=== PATIENT | female | born 1960 | race Hispanic/Latino ===

== ENCOUNTER 2018-06-21 20:34 | Emergency (ER) | payer OTHER ==
[~2018-06-21] VITALS: Ht 162.6 cm; Wt 73.5 kg
[~2018-06-21 20:34] MED LIST: IBUPROFEN 800 MG PO; Z IRON PO; Z.0.ALAGESIC CAPSU1 PO; Z.0.FOLIC ACID1 MG PO; Z.0.MELOXICAM7.5 MG PO; Z.0.PREMARIN1.25 MG PO
[2018-06-21] MEDS ORDERED: KETOROLAC TROMETHAMINE 30 MG/ML VIAL IV STA (20:58)
[2018-06-21] MEDS ORDERED: ORPHENADRINE CITRATE 30 MG/ML VIAL IM ONE (21:00)
[2018-06-21 21:34] LABS: BASOPHILS % 0.2 % (0.0-1.0); EOSINOPHILS % 0.2 % (0.0-6.0); HEMATOCRIT 41.8 % (34.2-44.1); HEMOGLOBIN 13.8 g/dL (12.0-16.0); LYMPHOCYTES # (AUTO) 1.3 (1.0-3.2); LYMPHOCYTES % 24.8 % (18.0-39.1); MEAN CORPUSCULAR HEMOGLOBIN 29.1 pg (28-32); MEAN CORPUSCULAR VOLUME 88.2 fL (81-99); MONOCYTES # (AUTO) 0.4 (0.2-0.8); MONOCYTES % 7.9 % (4.4-11.3); NEUTROPHILS # (AUTO) 3.5 (2.1-6.9); NEUTROPHILS % 66.5 % (38.7-80.0); PLATELET COUNT 185 x10e3/uL (140-360); RED BLOOD COUNT 4.74 x10e6/uL (3.6-5.1); RED CELL DISTRIBUTION WIDTH 13.5 % (11.7-14.4)
[2018-06-21 21:58] LABS: ALANINE AMINOTRANSFERASE 55 IU/L (0-55); ALBUMIN/GLOBULIN RATIO 1.1 (0.8-2.0); ALKALINE PHOSPHATASE 108 IU/L (40-150); ANION GAP 13.7 mmol/L (8-16); BLOOD UREA NITROGEN 14 mg/dL (7-26); BUN/CREATININE RATIO 18 (6-25); CALCIUM 9.6 mg/dL (8.4-10.2); CARBON DIOXIDE 24 mmol/L (22-29); CHLORIDE 102 mmol/L (98-107); CREATINE KINASE 85 IU/L (29-168); CREATININE, SERUM 0.77 mg/dL (0.57-1.11); EST GLOMERULAR FILTRATION RATE > 60 ML/MIN (60-); GLUCOSE 107 mg/dL (74-118); POTASSIUM 4.7 mmol/L (3.5-5.1); SODIUM 135 mmol/L (136-145)
--- NOTE | 2018-06-21 22:36 | Diagnostic Imaging Report ---
CHEST SINGLE (NOT PORTABLE), 06/21/2018 8:57 PM Technique: CHEST SINGLE (NOT PORTABLE) Comparison: None available. Clinical history: Left arm pain Findings: Unremarkable appearance of the heart, mediastinum, lungs and pleural spaces. Remote right rib fractures. Impression: 1. Lines/Tubes: None 2. No acute abnormality. Signed by: Dr Bozena Judd MD on 06/21/2018 10:33 PM
[2018-06-21 23:11] VITALS: BP 109/66
== END 2018-06-21 23:16 | disposition home or self-care (01) ==
LOC: ER 20:34
DX: M79.622 Pain in left upper arm (principal); M25.512 Pain in left shoulder; S46.812A Strain of other muscles, fascia and tendons at shoulder and upper arm level, left arm, initial encounter
CPT/HCPCS: 36415; 71045; 80053; 82550; 82553; 84484; 85025; 93005; 99283; J1885; J2360

== ENCOUNTER 2019-04-12 20:48 | Emergency (ER) | payer OTHER ==
[~2019-04-12] VITALS: Ht 162.6 cm; Wt 77.1 kg
--- OUTSIDE RECORDS SUMMARY | 2019-04-12 20:53 | XMS REPORT ---
Author Author [facility] Address Unknown Phone Unavailable Care Team Providers Care Employment Instructional Associate Name Role Phone Yonatan MARR Unavailable Unavailable Problems This patient has no known problems. Allergies, Adverse Reactions, Alerts This patient has no known allergies or adverse reactions. Medications This patient has no known medications. Results Test Description Test Time Test Comments Text Results Atomic Results Result Comments CHEST SINGLE (NOT PORTABLE) 2018-06-21 22:31:00 [place] [address] Patient Name: BRAYDON ESPAÑA MR #: [id number] : 1960 Age/Sex: 58/F Req #: [id number] Adm Physician: Ordered by: ELISABETH MARR MD Report #: [id number] Location: ER Room/Bed: Procedure: [id number] DX/CHEST SINGLE (NOT PORTABLE) Exam Date: 06/21/18 Exam Time: 2124 REPORT STATUS: Signed CHEST SINGLE (NOT PORTABLE), 06/21/2018 8:57 PM Technique: CHEST SINGLE (NOT PORTABLE) Comparison: None available. Clinical history: Left arm pain Findings: Unremarkable appearance of the heart, mediastinum, lungs and pleural spaces. Remote right rib fractures. Impression: 1. Lines/Tubes: None 2. No acute abnormality. Signed by: Dr Marcel Judd MD on 06/21/2018 10:33 PM Dictated By: MARCEL JUDD MD 32 Transcribed By: DENICE on 06/21/182232 COPY TO: ELISABETH MARR MD
[2019-04-12] MEDS ORDERED: FAMOTIDINE 20 MG/2 ML VIAL IV STA (21:38)
[2019-04-12 21:42] LABS: BASOPHILS % 0.3 % (0.0-1.0); EOSINOPHILS # (AUTO) 0.1 (0.0-0.4); EOSINOPHILS % 1.7 % (0.0-6.0); HEMATOCRIT 38.8 % (34.2-44.1); HEMOGLOBIN 12.9 g/dL (12.0-16.0); LYMPHOCYTES # (AUTO) 2.7 (1.0-3.2); LYMPHOCYTES % 41.6 % (18.0-39.1); MEAN CORPUSCULAR HEMOGLOBIN 29.5 pg (28-32); MEAN CORPUSCULAR HGB CONC 33.2 g/dL (31-35); MEAN CORPUSCULAR VOLUME 88.8 fL (81-99); MONOCYTES # (AUTO) 0.5 (0.2-0.8); MONOCYTES % 7.2 % (4.4-11.3); NEUTROPHILS # (AUTO) 3.2 (2.1-6.9); NEUTROPHILS % 48.9 % (38.7-80.0); PLATELET COUNT 206 x10e3/uL (140-360); RED BLOOD COUNT 4.37 x10e6/uL (3.6-5.1); RED CELL DISTRIBUTION WIDTH 12.9 % (11.7-14.4)
[2019-04-12] MEDS ORDERED: DIPHENHYDRAMINE HCL INJ 50 MG/ML VIAL IV ONE (21:45)
[2019-04-12] MEDS ORDERED: METHYLPREDNISOLONE SOD SUCC 125 MG/2ML VIAL IV ONE (21:45)
[2019-04-12 22:03] LABS: ALANINE AMINOTRANSFERASE 33 IU/L (0-55); ALBUMIN/GLOBULIN RATIO 1.2 (0.8-2.0); ALKALINE PHOSPHATASE 99 IU/L (40-150); ANION GAP 13.9 mmol/L (8-16); BLOOD UREA NITROGEN 14 mg/dL (7-26); BUN/CREATININE RATIO 18 (6-25); CALCIUM 9.3 mg/dL (8.4-10.2); CARBON DIOXIDE 28 mmol/L (22-29); CHLORIDE 102 mmol/L (98-107); CREATINE KINASE 107 IU/L (29-168); CREATININE, SERUM 0.76 mg/dL (0.57-1.11); EST GLOMERULAR FILTRATION RATE > 60 ML/MIN (60-); GLUCOSE 103 mg/dL (74-118); POTASSIUM 3.9 mmol/L (3.5-5.1); SODIUM 140 mmol/L (136-145)
[2019-04-12 22:05] LABS: AMYLASE 81 U/L (25-125); LIPASE 53 U/L (8-78)
--- NOTE | 2019-04-12 22:42 | Diagnostic Imaging Report ---
A single frontal view of the chest. HISTORY: Heartburn COMPARISON: None available. DISCUSSION: Portable technique, limits sensitivity of the exam. Soft tissue attenuation partially limits sensitivity of the exam. Tubes/Lines: None Lungs and pleura: The lungs are well inflated. No evidence of a consolidative pneumonia or pulmonary alveolar edema. Stable 5 mm calcific density projecting at the right upper lung. No definite pleural effusion or pneumothorax is identified. Heart and mediastinum: The cardiomediastinal silhouette appear(s) unremarkable. Bones and soft tissues: Appear unremarkable, given this limited exam. IMPRESSION: 1. No acute radiographic abnormality. 2. Stable 5 mm density projecting at the right upper lung, likely a calcified granuloma, a small bone island within an overlying rib, or soft tissue calcification. If the patient has increased risk for lung cancer such as a significant smoking history or known malignancy, recommend a follow-up nonemergent CT of the chest without contrast for additional screening. Signed by: Dr. Joey Monaco D.O., M.M.M. on 04/12/2019 10:38 PM
[2019-04-12] MEDS ORDERED: PANTOPRAZOLE SO40 MG PO (22:48)
[2019-04-12] MEDS ORDERED: PREDNISONE20 MG PO (23:12)
[2019-04-12 23:25] VITALS: BP 100/89
== END 2019-04-12 23:27 | disposition home or self-care (01) ==
LOC: ER 20:48
DX: R21 Rash and other nonspecific skin eruption (principal); K29.00 Acute gastritis without bleeding; K21.9 Gastro-esophageal reflux disease without esophagitis; D64.9 Anemia, unspecified
CPT/HCPCS: 36415; 71045; 80053; 82150; 82550; 82553; 83690; 84484; 85025; 93005; 99284; J1200; J2930